=== PATIENT | male | born 1960 | race Hispanic/Latino ===

== ENCOUNTER 2016-12-30 13:56 | Emergency (ER) | payer OTHER ==
[2016-12-30] MEDS ORDERED: Sodium Chloride 0.9% 1,000 ML IV STA ×3 (14:38→18:41)
[2016-12-30] MEDS ORDERED: Insulin Regular 100 units/ml IVP ONE ×2 (14:42→18:18)
[2016-12-30 15:07] LABS: RBC URINE < 1 /hpf (0-3); URINE BACTERIA RARE (<OCC); URINE BILIRUBIN NEGATIVE (NEGATIVE); URINE BLOOD NEGATIVE (NEGATIVE); URINE COLOR YELLOW (YELLOW); URINE GLUCOSE (UA) >=500 mg/dL (Normal); URINE KETONE NEGATIVE (NEGATIVE); URINE LEUKOCYTE ESTERASE NEG Leu/uL (Negative); URINE PROTEIN NEGATIVE (NEGATIVE); URINE UROBILINOGEN 0.2-1.0 mg/dL (0.2-1.0); WBC URINE < 1 /hpf (0-5)
[2016-12-30 15:12] LABS: BASO # 0.1 K/uL (0.0-0.2); BASO % 0.5 % (0.0-2.0); EOS # 0.1 K/uL (0.0-0.7); EOS % 0.9 % (0.0-4.0); HEMATOCRIT 41.5 % (35.0-51.0); LYMPH % 17.7 % (20.0-40.0); MEAN CELL VOLUME 90.2 fl (80.0-94.0); MEAN CORPUSCULAR HEMOGLOBIN 29.9 pg (27.0-31.0); MEAN CORPUSCULAR HGB CONC 33.1 g/dL (33.0-37.0); MEAN PLATELET VOLUME 9.8 fl (7.2-11.7); MONO # 1.1 K/uL (0.0-0.8); MONO % 9.5 % (0.0-10.0); NEUT % 71.4 % (50.0-75.0); NRBC % 0.1 % (0.0-0.0); RED CELL DISTRIBUTION WIDTH 13.8 % (11.5-14.5); WHITE BLOOD COUNT 11.3 K/uL (4.8-10.8)
[2016-12-30 15:25] LABS: ALB/GLOB RATIO 1.8 (1.0-2.1); ALKALINE PHOSPHATASE 145 U/L (38-126); ALT/SGPT 40 U/L (21-72); AST/SGOT 24 U/L (17-59); BILIRUBIN,TOTAL 0.4 mg/dl (0.2-1.3); BLOOD UREA NITROGEN 23 mg/dl (9-20); CALCIUM 9.9 mg/dL (8.4-10.2); CARBON DIOXIDE 25 mmol/L (22-30); CHLORIDE 94 mmol/L (98-107); GFR AFRICAN-AMERICAN > 60; POTASSIUM 5.1 MMOL/L (3.6-5.0); SODIUM 132 mmol/l (132-148); TOTAL PROTEIN 7.1 G/DL (6.3-8.2)
--- NOTE | 2016-12-30 15:27 | ED PDOC ---
Hyperglycemia/Hypoglycemia Time Seen by Provider: 12/30/16 14:37 Chief Complaint (Nursing): High Blood Sugar Chief Complaint (Provider): Hyperglycemia History Per: Patient History/Exam Limitations: no limitations Onset/Duration Of Symptoms: Persistent Current Symptoms Are (Timing): Still Present Severity: Moderate Pain Scale Rating Of: 4 Current Diabetic Medications: Insulin Causative (Exacerbating) Factor(s): Other (recent change in medications) Associated Infectious Symptoms: Other (polyuria, mild dizziness; denies a fever , abdominal pain, or weakness). denies: Cough, Diarrhea : The patient does not have any of the infectious symptoms listed except for those marked. Treatment Prior To Provider Evaluation: Accucheck (initially greater than 500), Oral Fluids/Paste Given Response To Treatment: Good Response Additional Complaint(s): Nikita Zurita is a 56 year old male, with a past medical history of type II diabetes mellitus, hypertension, hyperlipidemia, and hypercholesterolemia, who presents to the emergency department, upon a recommendation from his primary medical doctor, for the evaluation of persistent hyperglycemia. Patient recently changed medications at home and is currently taking Toujeo and oral antihyperglycemics. Associated polyuria and mild dizziness are currently present. Denies a fever, cough, abdominal pain, weakness, or diarrhea. PMD: Aniya Nam Past Medical History Reviewed: Historical Data, Nursing Documentation, Vital Signs Vital Signs: Last Vital Signs Temp 98.8 F 12/30/16 14:31 Pulse 83 12/30/16 14:31 Resp 18 12/30/16 14:31 BP 104/67 12/30/16 14:31 Pulse Ox 99 12/30/16 14:31 - Medical History PMH: Back Problems, Diabetes (type II), HTN, Hypercholesterolemia, Hyperlipidemia - Surgical History Surgical History: Back Surgery - Family History Family History: States: No Known Family Hx - Social History Current smoker - smoking cessation education provided: No Ex-Smoker (has not smoked in the last 12 months): Yes Alcohol: None Drugs: Denies - Allergies Allergies/Adverse Reactions: Allergies Allergy/AdvReac Type Severity Reaction Status Date / Time Penicillins Allergy Verified 07/18/16 16:51 Review of Systems ROS Statement: Except As Marked, All Systems Reviewed And Found Negative Constitutional: Positive for: Other (persistent hyperglycemia). Negative for: Fever Respiratory: Negative for: Cough Gastrointestinal: Negative for: Abdominal Pain, Diarrhea Genitourinary Male: Positive for: Other (polyuria) Neurological: Positive for: Dizziness (mild). Negative for: Weakness Physical Exam - Reviewed Nursing Documentation Reviewed: Yes Vital Signs Reviewed: Yes - Physical Exam Appears: Positive for: No Acute Distress Head Exam: Positive for: ATRAUMATIC, NORMAL INSPECTION, NORMOCEPHALIC Skin: Positive for: Normal Color, Warm, Dry Eye Exam: Positive for: EOMI, Normal appearance, PERRL ENT: Positive for: Normal ENT Inspection. Negative for: Pharyngeal Erythema, Tonsillar Exudate Cardiovascular/Chest: Positive for: Regular Rate, Rhythm. Negative for: Murmur Respiratory: Positive for: Normal Breath Sounds. Negative for: Respiratory Distress Gastrointestinal/Abdominal: Positive for: Normal Exam, Soft. Negative for: Tenderness Back: Positive for: Normal Inspection. Negative for: L CVA Tenderness, R CVA Tenderness Extremity: Positive for: Normal ROM. Negative for: Tenderness Neurologic/Psych: Positive for: Alert, Oriented. Negative for: Motor/Sensory Deficits - Laboratory Results Result Diagrams: 12/30/16 14:55 12/30/16 14:55 - ECG O2 Sat by Pulse Oximetry: 99 (RA) Pulse Ox Interpretation: Normal Medical Decision Making Medical Decision Makin:37 Initial Impression: Hyperglycemia r/o infection, diabetic ketoacidosis, and dehydration Initial Plan: * CBC * CMP * Urinalysis * HumuLIN R 8 units IVP (x2) * Sodium Chloride 0.9% 1,000 ml IV at 1,000 mls/hr (x3) * Percocet 325 mg tablet, 2 tablets PO * Glucose, Blood, POC * Reevaluation 15:27 Blood work shows elevated glucose and BUN. AG is 18. 15:[address] Nam who recommends further IV fluids. Patient can be discharged if sugar is under 300. Scribe Attestation: Documented by Tariq Weston, acting as a scribe for Konrad Velarde III, MD. Provider Scribe Attestation: All medical record entries made by the Scribe were at my direction and personally dictated by me. I have reviewed the chart and agree that the record accurately reflects my personal performance of the history, physical exam, medical decision making, and the department course for this patient. I have also personally directed, reviewed, and agree with the discharge instructions and disposition. Disposition - Clinical Impression Clinical Impression: Hyperglycemia - Patient ED Disposition Is Patient to be Admitted: No Counseled Patient/Family Regarding: Studies Performed, Diagnosis, Need For Followup - Disposition Referrals: Hamilton Montenegro MD [Primary Care Provider] - Disposition: Routine/Home Disposition Time: 19:00 Condition: STABLE Instructions: Diabetic Hyperglycemia (ED)
[2016-12-30 15:41] LABS: GLUCOSE,RANDOM 603 mg/dL (75-110)
[2016-12-30] MEDS ORDERED: Oxycodone/Acetaminophen 5/325 mg Tab ONE (18:33)
[2016-12-30] MEDS ORDERED: Insulin Regular 100 units/ml ONE (18:34)
[2016-12-30] MEDS ORDERED: Oxycodone/Acetaminophen 5/325 mg Tab PO STA (18:35)
--- NOTE | 2016-12-30 20:17 | ED PDOC ---
- Laboratory Results Result Diagrams: 12/30/16 14:55 12/30/16 14:55 - ECG O2 Sat by Pulse Oximetry: 99 (RA) Pulse Ox Interpretation: Normal Medical Decision Making Medical Decision Makin:00 Patient transferred over to provider from Dr. Velarde. Pending repeat accucheck and reevaluation. 20:32 Repeat accucheck is now below 300. 20:35 Upon provider reevaluation patient verbalizes feeling significantly improved, is medically stable, and requires no further treatment in the emergency department at this time. Patient will be discharged home without a need for a prescription. Counseling was provided and all questions were answered regarding diagnosis and need for follow up with Hamilton Montenegro MD in 1-2 days. Patient is in agreement with provider's discharge plan and was prompted to return if their symptoms persist or worsen. Clinical Impression: Hyperglycemia Scribe Attestation: Documented by Tariq Weston, acting as a scribe for Shyam Light MD. Provider Scribe Attestation: All medical record entries made by the Scribe were at my direction and personally dictated by me. I have reviewed the chart and agree that the record accurately reflects my personal performance of the history, physical exam, medical decision making, and the department course for this patient. I have also personally directed, reviewed, and agree with the discharge instructions and disposition. Disposition - Clinical Impression Clinical Impression: Hyperglycemia - POA Present On Arrival: None - Disposition Referrals: Hamilton Montenegro MD [Primary Care Provider] - Disposition: Routine/Home Disposition Time: 20:35 Condition: STABLE Instructions: Diabetic Hyperglycemia (ED)
[2016-12-30 20:34] VITALS: BP 115/80; PULSE 75; RESP 16; TEMP 98.1
[2016-12-30 20:58] VITALS: O2SAT 99
== END 2016-12-30 20:56 | disposition home or self-care (01) ==
LOC: H.ER 13:56
DX: E11.65 Type 2 diabetes mellitus with hyperglycemia (principal); R42 Dizziness and giddiness; R35.8 Other polyuria; I10 Essential (primary) hypertension; E78.5 Hyperlipidemia, unspecified; E78.01 Familial hypercholesterolemia